=== PATIENT | female | born 2005 | race Caucasian/White ===

== ENCOUNTER 2024-12-09 21:48 | Emergency (ER) | payer SELFPAY ==
[2024-12-09 22:29] LABS: BILIRUBIN Negative (Negative); BLOOD 3+ (Negative); CLARITY Turbid (Clear); COLOR Yellow (Yellow); KETONE Negative (Negative); LEUKO ESTERASE 3+ (Negative); NITRITE Negative (Negative); PH 6.0 (4.5-8.0); SPECIFIC GRAVITY 1.020 (1.001-1.030); UROBILINOGEN 1.0 E.U./dl (0.0-1.0)
[2024-12-09 22:37] LABS: BACTERIA 2+; RBC 31-40 rbc/hpf (0-2); WBC TNTC wbc/hpf (0-5)
[2024-12-09] MEDS ORDERED: CIPRO500 MG PO (23:18)
[2024-12-09] MEDS ORDERED: Ciprofloxacin Hydrochloride 500 MG TAB PO ONE (23:20)
== END 2024-12-09 23:22 | disposition home or self-care (01) ==
LOC: ED 21:48
PROVIDERS: Internal Medicine
DX: N39.0 Urinary tract infection, site not specified (principal); Z87.440 Personal history of urinary (tract) infections